=== PATIENT | female | born 1995 | race Caucasian/White ===

== ENCOUNTER 2021-06-04 07:20 | Outpatient (CLI) | payer BC ==
[2021-06-04] MEDS ORDERED: Magnevist 469MG/ML 20 ML VIAL ONE (09:43)
== END 2021-06-04 07:21 | disposition home or self-care (01) ==
LOC: BICMRI 07:20
PROVIDERS: ATTEND Nurse Practitioner Acute Care
DX: G43.109 Migraine with aura, not intractable, without status migrainosus (principal)
CPT/HCPCS: 70553; A9579